=== PATIENT | male | born 1975 | race Caucasian/White ===

== ENCOUNTER 2017-03-02 09:46 | Outpatient (CLI) | payer OTHER | END 2017-03-02 09:47 | disposition home or self-care (01) | LOC: SC 09:46 | PROVIDERS: ATTEND Internal Medicine Pulmonary Disease | DX: G47.30 Sleep apnea, unspecified (principal); G47.8 Other sleep disorders; R06.83 Snoring; R53.83 Other fatigue | CPT/HCPCS: 99203; 99212 ==

== ENCOUNTER 2017-03-18 21:54 | Outpatient (CLI) | payer OTHER | END 2017-03-18 21:55 | disposition home or self-care (01) | LOC: SC 21:54 | PROVIDERS: ATTEND Internal Medicine Pulmonary Disease | DX: G47.33 Obstructive sleep apnea (adult) (pediatric) (principal); G47.31 Primary central sleep apnea; G47.61 Periodic limb movement disorder; Z68.30 Body mass index [BMI] 30.0-30.9, adult | CPT/HCPCS: 95810 ==

== ENCOUNTER 2017-04-08 11:11 | Outpatient (CLI) | payer OTHER | END 2017-04-08 11:12 | disposition home or self-care (01) | LOC: SC 11:11 | PROVIDERS: ATTEND Nurse Practitioner Family | DX: G47.33 Obstructive sleep apnea (adult) (pediatric) (principal); G47.61 Periodic limb movement disorder | CPT/HCPCS: 99212; 99214 ==

== ENCOUNTER 2017-04-27 19:20 | Outpatient (CLI) | payer OTHER | END 2017-04-27 19:21 | disposition home or self-care (01) | LOC: SC 19:20 | PROVIDERS: ATTEND Internal Medicine Pulmonary Disease | DX: G47.33 Obstructive sleep apnea (adult) (pediatric) (principal); G47.61 Periodic limb movement disorder; Z68.30 Body mass index [BMI] 30.0-30.9, adult | CPT/HCPCS: 95811 ==

== ENCOUNTER 2017-05-27 09:42 | Outpatient (CLI) | payer OTHER | END 2017-05-27 09:43 | disposition home or self-care (01) | LOC: SC 09:42 | PROVIDERS: ATTEND Nurse Practitioner Family | DX: G47.33 Obstructive sleep apnea (adult) (pediatric) (principal) | CPT/HCPCS: 99212; 99214 ==

== ENCOUNTER 2017-07-16 08:47 | Outpatient (CLI) | payer OTHER | END 2017-07-16 08:48 | disposition home or self-care (01) | LOC: SC 08:47 | PROVIDERS: ATTEND Nurse Practitioner Family | DX: G47.33 Obstructive sleep apnea (adult) (pediatric) (principal) | CPT/HCPCS: 99212; 99214 ==

== ENCOUNTER 2017-10-15 09:45 | Outpatient (CLI) | payer OTHER | END 2017-10-15 09:46 | disposition home or self-care (01) | LOC: SC 09:45 | PROVIDERS: ATTEND Nurse Practitioner Family | DX: G47.33 Obstructive sleep apnea (adult) (pediatric) (principal); I10 Essential (primary) hypertension | CPT/HCPCS: 99212; 99214 ==

== ENCOUNTER 2018-07-14 15:08 | Outpatient (CLI) | payer OTHER | END 2018-07-14 15:09 | disposition home or self-care (01) | LOC: SC 15:08 | PROVIDERS: ATTEND Nurse Practitioner Family | DX: G47.33 Obstructive sleep apnea (adult) (pediatric) (principal) | CPT/HCPCS: 99212; 99214 ==

== ENCOUNTER 2019-07-27 11:22 | Outpatient (CLI) | payer OTHER ==
[2019-07-27 12:23] VITALS: BP 152/98
--- NOTE | 2019-07-27 12:23 | SLEEP CARE CONSULTATION ---
Information from patient questionnaire entered by Nat Carty. I have reviewed and concur with the information entered by Nat Carty. This document represents the service I personally performed and the decisions made by me, Aminah Everett, RN, MSN, QA REVIEWER. History of Present Illness Previous diagnosis: Mild (having problems getting supplies / would like to transfer. ), Obstructive Sleep Apnea-Hypopnea Syndrome AHI: 8.4 Reason for CPAP/BiPAP follow up: annual Equipment type: CPAP Equipment obtained from: [facility] Mask style: Nasal (Dreamwear) Mask brand: Respironics Backup mask available: Yes Last cushion change: 3 weeks ago Prior sleep studies: Yes Year and Where: 2016 [facility] additional information: Received call 03/30/19 that he was having some symptoms of bloating when first awakened. I ordered autoCPAP pressure change to 4-6cmH20 with patient to follow up. Patient symptoms resolved but current compliance does not show pressure change. History reflects he was also eating alot of chili then. No current problems with pressure or aerophagia. CPAP Compliance Data - Data Reviewed with Patient Average duration of nightly device use: 8h 5m Compliance rate %: 100 Current pressure setting (cmH2O): 7 Humidity setting: off Heated hose settin Average residual AHI: 2.6 Average large leak: 2 min 43 sec Subjective Patient concerns: reports: air blowing in eyes (rare). denies: aerophagia, mask discomfort, mask leak noise, condensation in mask/hose, nasal congestion, dry mouth, nose, throat, epistaxis Observed to snore while using device: No Current pressure setting perceived as: comfortable On therapy, patient: reports: sleeping better, awakening more refreshed, being more awake and alert during the day, more rested overall. denies: drowsiness while driving Initial Frederick Sleepiness Scale score: 5 Current Frederick Sleepiness Scale score: 2 Allergies and Home Medications Known drug allergies: No Home medication list reviewed: Yes Allergy and home medication list: Medication Name (generic/name brand) Strength & Dosage Flonase 50mcg 2 sprays each nostril daily Pantoprazole 20mg every other day and as needed Review of Systems Review of systems same as previous: Yes Physical Exam Blood Pressure: 152/98 (monitors at home and PCP guidelines) Cuff size: long Heart Rate: 74 O2 Saturation: 97 Height: 6 ft 3 in Weight: 252 lb 12.8 oz Body Mass Index: 31.6 BMI Classification: Obesity Class 1 Impression and Plan 1. Obstructive Sleep Apnea-Hypopnea Syndrome, mild, with good treatment compliance and good apnea control. On CPAP therapy, the patient has better sleep quality and is more rested overall. He has had symptoms of aerophagia in past and plans on losing weight so I will change his CPAP pressure to autoCPAP 5- 7cmH20. He is to contact me if pressure change uncomfortable or if AHI above 5 as shown on sample CPAP. Symptoms to report for further pressure adjustment with weight loss discussed. For his supply concerns I will transfer to [place]. A DWO prescription will be made. I will have discharge registrar inform him of his DME options. Patient's apnea severity and rationale for treatment to reduce apnea, improve sleep quality and reduce cardiovascular and cerebrovascular events was reviewed. I also reviewed the benefit of consistent device use of CPAP for hypertension, gerd, anxiety. 2. Elevated blood pressure, 152/98 and 140/100 at end of visit. He denies lightheadedness, chest pain and shortness of breath. He monitors blood pressure at home and generally runs around 130/89. He has seen PCP and has guidelines to follow. I advised him of risks of untreated HTN and to seek urgent medical care if over 180 systolic and over 100 diastolic. I reviewed health risks of heart disease and stroke with untreated hypertension. He would prefer not to use medications to control his blood pressure. However, he is advised to follow up with PCP for further evaluation and bring his B/P recordings from home to see if needed at this time. A monitoring card given with today's readings. He also is working on losing weight which will reduce blood pressure and apnea risks. He states he just lost 10 pounds after gained while traveling for work. * Transfer to new [facility] [employer] [facility] * Change CPAP pressure to 5-7 cmH2O for projected weight loss. * Notify me if snoring with mask or feeling that the pressure is too much or too little * Continue to lose weight * Follow up with PCP for further evaluation of elevated blood pressure * Return for follow up in 1 year , or sooner if concerns arise I spent 100% of this 30 minute visit face to face with the patient with greater than 50% of this was spent time counseling the patient and coordination of care.
== END 2019-07-27 11:23 | disposition home or self-care (01) ==
LOC: SC 11:22
PROVIDERS: ATTEND Nurse Practitioner Family
DX: G47.33 Obstructive sleep apnea (adult) (pediatric) (principal); R03.0 Elevated blood-pressure reading, without diagnosis of hypertension; E66.9 Obesity, unspecified; Z68.31 Body mass index [BMI] 31.0-31.9, adult
CPT/HCPCS: 99212; 99214

== ENCOUNTER 2022-02-04 11:03 | Outpatient (CLI) | payer OTHER ==
[2022-02-04 10:49] VITALS: BP 137/91
--- NOTE | 2022-02-04 10:49 | SLEEP CARE CONSULTATION ---
Information from patient questionnaire entered by Joyce Rivera MA. I have reviewed and concur with the information entered by Joyce Rivera MA. This document represents the service I personally performed and the decisions made by , Reena Thomason ARNP. History of Present Illness Service Date and Time: 02/04/2022 1040 Previous diagnosis: Mild (having problems getting supplies / would like to transfer. ), Obstructive Sleep Apnea-Hypopnea Syndrome AHI: 8.4 Reason for follow up: annual (LAST SEEN 07/2019, ) Equipment type: CPAP Equipment obtained from: [employer] (getting supplies as needed) Mask style: Nasal (Dreamwear) Mask brand: Respironics Backup mask available: Yes (old mask) Last cushion change: today Prior sleep studies: Yes Year and Where: 2016 [facility] HPI additional information: SHANDRA GOMEZ was diagnosed to have mild, AHI 8.4, obstructive sleep apnea- hypopnea syndrome and returns via video telehealth visit today for CPAP therapy annual follow-up. Sleep Study - Results Prior sleep studies: Yes Year and Where: 2016 [facility] CPAP Compliance Data - Data Reviewed with Patient Average duration of nightly device use: 8 HOURS 54 MINUTES Compliance rate %: 97.2 Current pressure setting (cmH2O): 5-7 Humidity settin Heated hose settin Average residual AHI: 4.4 Average large leak: 2 MINUTES 59 SECONDS Subjective Missed days of use due to: reports: illness (sinus infection) Patient concerns: denies: aerophagia, mask discomfort, air blowing in eyes, mask leak noise, condensation in mask/hose, nasal congestion, dry mouth, nose, throat, epistaxis, other Observed to snore while using device: No Current pressure setting perceived as: comfortable On therapy, patient: reports: sleeping better, awakening more refreshed, being more awake and alert during the day, more rested overall. denies: drowsiness while driving Initial Cardinal Sleepiness Scale score: 5 Current Cardinal Sleepiness Scale score: 0 Allergies and Home Medications Home medication list reviewed: Yes (weaning off pantoprazole, taking every other day last 2 wks) Review of Systems Review of systems same as previous: Yes (no changes) Physical Exam Vital signs obtained and entered by: L. MIMI, OFFICE TECHNOLOGY INSTRUCTOR AAMA Blood Pressure: 137/91 Cuff size: wrist Height: 6 ft 3 in Weight: 250 lb Body Mass Index: 31.2 BMI Classification: Obese Impression and Plan 1. Obstructive Sleep Apnea-Hypopnea Syndrome, mild, with good treatment compliance and good apnea control. On CPAP therapy, the patient has better sleep quality and is more rested overall. He has a Dreamstation that he has verified is on the recall. He is eligible in 05/2022 for a update of his CPAP. Patient has already registered their device for the recall. Patient denies any black particles seen in machine or hoses, any unusual odors coming from device. Patient has not experienced any physical symptoms such as upper airway irritation, headache, skin or eye irritation, asthma, nausea/vomiting, difficulty breathing or chest pain. If patient is not able to sleep due to waking up choking, gasping for air or other respiratory distress that they may decide to continue using it until it is either replaced or repaired. Patient will continue to use his CPAP and monitor for changes. Patient voiced understanding and agreement with plan. Patient's apnea severity and rationale for treatment to reduce apnea, improve sleep quality and reduce cardiovascular and cerebrovascular events was reviewed. I also reviewed the benefit of consistent device use of CPAP for hypertension, gastric reflux and anxiety. Patient was encouraged to try to lose weight to improve his overall health. * Continue auto CPAP pressure at 5-7 cmH2O * Notify me if snoring with mask or feeling that the pressure is too much or too little * Attempt to lose weight * Call this office if any problems using CPAP * Return for follow up in 1 year, or sooner if concerns arise Counseling Topics: Spare mask, Weight loss health impact Visit Type: Telehealth Video ([phone] HOME) Video Type: Doximity Patient Location: Home Location of Provider: Office Patient agrees and consents to this telehealth visit type: Yes Patient agrees to have their insurance billed: Yes Time Spent with Patient (minutes): 20 Provider Statement: I spent 100% of the Telehealth Video Call with the patient with greater than 50% spent counseling the patient and coordination of care.
== END 2022-02-04 11:04 | disposition home or self-care (01) ==
LOC: SC 11:03
PROVIDERS: ATTEND Nurse Practitioner Family
DX: G47.33 Obstructive sleep apnea (adult) (pediatric) (principal); E66.9 Obesity, unspecified; Z68.31 Body mass index [BMI] 31.0-31.9, adult

== ENCOUNTER 2022-08-20 08:19 | Day surgery (SDC) | payer OTHER ==
[2022-08-20] MEDS ORDERED: LACTATED RINGERS 1,000 ML IV ONE ×2 (08:37→09:28)
[2022-08-20] MEDS ORDERED: PROPOFOL 500 MG/50 ML 500 MG/50 ML VIAL ONE (08:57)
--- NOTE | 2022-08-20 09:09 | ANESTHESIA ---
Pre-Anesthesia VS, & Labs - Diagnosis screening - Procedure colonoscopy Vital Signs: Temp Pulse Resp BP Pulse Ox O2 Flow Rate 36.6 C 87 17 99 08/20/22 08:32 08/20/22 08:32 08/20/22 08:32 08/20/22 08:32 Height: 6 ft 3 in Weight (kg): 119 kg Body Mass Index: 32.8 BMI Classification: Obese - NPO >8 hours Home Medications and Allergies Fluticasone [Flonase] 1 spray INH PRN PRN 08/19/22 Pantoprazole Sodium [Protonix] 3 tab PO DAILY 08/19/22 Allergies/Adverse Reactions: Allergies Allergy/AdvReac Type Severity Reaction Status Date / Time No Known Drug Allergies Allergy Verified 08/19/22 13:19 Anes History & Medical History - Anesthetic History Anesthesia Complications: reports: No previous complications - Medical History Cardiovascular: reports: Hypertension Pulmonary: reports: Sleep apnea, CPAP use Gastrointestinal: reports: GERD Urinary: reports: None Musculoskeletal: reports: None Endocrine/Autoimmune: reports: None Skin: reports: None History of Cancer?: No - Surgical History General: reports: Appendectomy Exam General: Alert, Oriented x3 Dental: WNL Mouth Opening: Greater than 4 Fingerbreadths Mallampati classification: II Thyromental Distance: greater than 6 cm Respiratory: Lungs clear Cardiovascular: Regular rate Plan Anesthesia Type: Total IV Consent for Procedure(s) Verified and Reviewed: Yes Code Status: Attempt Resuscitation ASA classification: 2-Mild systemic disease Is this case an emergency?: No
[2022-08-20 09:52] VITALS: BP 166/110
--- NOTE | 2022-08-20 10:31 | ANESTHESIA POST OP EVALUATION ---
Anesthesia Post Eval - Post Anesthesia Eval Vitals: Last Vital Signs Temp 36.8 C 08/20/22 09:28 Pulse 75 08/20/22 09:52 Resp 17 08/20/22 09:52 BP 166/110 H 08/20/22 09:52 Pulse Ox 95 08/20/22 09:52 O2 Flow Rate CV Function Including HR & BP: Stable Pain Control: Satisfactory Nausea & Vomiting: Negative Mental Status: Baseline Respiratory Status: Airway Patent Hydration Status: Satisfactory Anesthesia Complications: None
== END 2022-08-20 08:20 | disposition home or self-care (01) ==
LOC: SDS 08:19
PROVIDERS: ATTEND Surgery
PROC: 0DBK8ZX Excision of Ascending Colon, Via Natural or Artificial Opening Endoscopic, Diagnostic (ICD-10-PCS; principal; 2022-08-20 09:30)
DX: Z12.11 Encounter for screening for malignant neoplasm of colon (principal); D12.2 Benign neoplasm of ascending colon; K64.8 Other hemorrhoids; G47.33 Obstructive sleep apnea (adult) (pediatric); E66.9 Obesity, unspecified; Z68.32 Body mass index [BMI] 32.0-32.9, adult; Z87.891 Personal history of nicotine dependence
CPT/HCPCS: 45385; J7120

== ENCOUNTER 2023-02-13 10:16 | Outpatient (CLI) | payer OTHER ==
[2023-02-13 10:12] VITALS: BP 133/86
--- NOTE | 2023-02-13 10:12 | SLEEP CARE CONSULTATION ---
Information from patient questionnaire entered by Jf Johnson. I have reviewed and concur with the information entered by Jf Johnson. This document represents the service I personally performed and the decisions made by me, Reena Thomason ARNP. History of Present Illness Service Date and Time: 02/13/2023 0940 Previous diagnosis: Mild (having problems getting supplies / would like to transfer. ), Obstructive Sleep Apnea-Hypopnea Syndrome AHI: 8.4 Reason for follow up: annual (LAST SEEN 01/2022) Equipment type: CPAP (Dreamstation 2) Equipment obtained from: [employer] (getting supplies as needed) Mask style: Nasal Mask brand: Respironics (Dreamwear) Backup mask available: Yes (old mask) Last cushion change: 3 days Prior sleep studies: Yes Year and Where: 2016 [facility] HPI additional information: SHANDRA GOMEZ was diagnosed to have mild, AHI 8.4, obstructive sleep apnea- hypopnea syndrome and returns via video telehealth visit today for CPAP therapy annual follow-up. Sleep Study - Results Prior sleep studies: Yes Year and Where: 2016 [facility] CPAP Compliance Data - Data Reviewed with Patient Average duration of nightly device use: 8 HRS 34 MINS 49 SECS Compliance rate %: 98.3 (08/16/22-02/11/23; 178/180 days used) Current pressure setting (cmH2O): 5-7 (avg 7.0) Average residual AHI: 6.2 Central apnea: 0.2 Obstructive apnea: 2.0 Hypopnea: 5.0 Average large leak: 3 mins 4 secs Subjective Missed days of use due to: reports: travel Patient concerns: reports: mask leak noise (needed new cushion). denies: aerophagia, mask discomfort, air blowing in eyes, condensation in mask/hose, nasal congestion, dry mouth, nose, throat, epistaxis Observed to snore while using device: No Current pressure setting perceived as: comfortable On therapy, patient: reports: sleeping better, awakening more refreshed, being more awake and alert during the day, more rested overall. denies: drowsiness while driving Initial Buckingham Sleepiness Scale score: 5 Current [place] Sleepiness Scale score: 2 (02/13/23) Allergies and Home Medications Known drug allergies: No Drug allergies reviewed: Yes Home medication list reviewed: Yes (Losartan 100 mg) Allergy and home medication list: Allergies No Known Drug Allergies Allergy Review of Systems Review of systems same as previous: No (colonoscopy 08/2022, normal) Physical Exam Vital signs obtained and entered by: JF Oseguera MA Blood Pressure: 133/86 (per pt) Heart Rate: 78 (per pt) Height: 6 ft 3 in (per pt) Weight: 256 lb (per pt) Body Mass Index: 32.0 BMI Classification: Obese Impression and Plan 1. Obstructive Sleep Apnea-Hypopnea Syndrome, mild, with good treatment compliance and fair apnea control with mild elevation of residual AHI. On CPAP therapy, the patient has better sleep quality and is more rested overall. The patients pressure will be changed to autoCPAP 5-8 cmH20 for elevation of residual AHI. Patient advised to contact me if pressure change is uncomfortable so that it can be adjusted. Patient has significant improvement of their sleep apnea and is satisfied with current CPAP therapy. Patient denies problems with oral dryness, nasal congestion, epistaxis, skin irritation or aerophagia. Goals for apnea control discussed. Patient's apnea severity and rationale for treatment to reduce apnea, improve sleep quality and reduce cardiovascular and cerebrovascular events was reviewed. I also reviewed the benefit of consistent device use of CPAP for hypertension, gastric reflux and anxiety. 2. Obesity, unspecified. Currently patients BMI is 32. Obesity increases the risk of apnea, CPAP pressure requirements and overall health risks especially cardiovascular and diabetes. Thus patient is advised to lose weight. * Change auto CPAP pressure to 5-8 cmH2O * Update supplies * Notify me if snoring with mask or feeling that the pressure is too much or too little * Attempt to lose weight * Call this office if any problems using CPAP * Return for follow up in 1 year, or sooner if concerns arise Counseling Topics: Spare mask, Weight loss health impact Visit Type: Telehealth Video Video Type: Doximity Patient Location: car Location of Provider: Office Patient agrees and consents to this telehealth visit type: Yes Patient agrees to have their insurance billed: Yes Time Spent with Patient (minutes): 11 Provider Statement: I spent 100% of the Telehealth Video Call with the patient with greater than 50% spent counseling the patient and coordination of care.
== END 2023-02-13 10:17 | disposition home or self-care (01) ==
LOC: SC 10:16
PROVIDERS: ATTEND Nurse Practitioner Family
DX: G47.33 Obstructive sleep apnea (adult) (pediatric) (principal); E66.9 Obesity, unspecified; Z68.32 Body mass index [BMI] 32.0-32.9, adult

== ENCOUNTER 2024-02-03 13:53 | Outpatient (CLI) | payer OTHER ==
--- NOTE | 2024-02-03 13:53 | SLEEP CARE CONSULTATION ---
Information from patient questionnaire entered by Denae Johnson. I have reviewed and concur with the information entered by Deane Johnson. This document represents the service I personally performed and the decisions made by , Reena Thomason ARNP. History of Present Illness Service Date and Time: 02/03/2024 1340 Previous diagnosis: Mild, Obstructive Sleep Apnea-Hypopnea Syndrome AHI: 8.4 Reason for follow up: first compliance after device update, annual (LAST SEEN 01/2023) Equipment type: CPAP (Dreamstation 2) Equipment obtained from: [employer] (having problems, would like transfer) Mask style: Nasal Mask brand: Respironics (Dreamwear) Backup mask available: Yes Last cushion change: 1 week Prior sleep studies: Yes Year and Where: 2016 [facility] HPI additional information: SHANDRA GOMEZ was diagnosed to have mild, AHI 8.4, obstructive sleep apnea- hypopnea syndrome and returns via video appointment today for CPAP therapy annual follow-up. Sleep Study - Results Prior sleep studies: Yes Year and Where: 2016 [facility] CPAP Compliance Data - Data Reviewed with Patient Average duration of nightly device use: 8 HRS 30 MINS 10 SEC Compliance rate %: 98.9 (01/30/23-01/29/24; 365/365 days used) Current pressure setting (cmH2O): 5-8 (avg 8) Average residual AHI: 5.5 Central apnea: 0.2 Obstructive apnea: 0.8 Hypopnea: 4.5 Average large leak: 2 mins 43 secs Subjective Patient concerns: reports: nasal congestion (due to allergies). denies: aerophagia, mask discomfort, air blowing in eyes, mask leak noise, condensation in mask/hose, dry mouth, nose, throat, epistaxis Observed to snore while using device: No Current pressure setting perceived as: comfortable On therapy, patient: reports: sleeping better, awakening more refreshed, being more awake and alert during the day, more rested overall. denies: drowsiness while driving Initial Daggett Sleepiness Scale score: 5 Current Daggett Sleepiness Scale score: 2 Allergies and Home Medications Known drug allergies: No Drug allergies reviewed: Yes Home medication list reviewed: Yes (Amlodipine 5 mg daily) Allergy and home medication list: Allergies No Known Drug Allergies Allergy (Verified 04/09/24 11:40) Review of Systems Review of systems same as previous: Yes (no changes) Physical Exam Vital signs obtained and entered by: REENA NASH Blood Pressure: 128/82 (per pt) Height: 6 ft 3 in (per pt) Weight: 274 lb (per pt) Body Mass Index: 34.2 BMI Classification: Obese Impression and Plan 1. Obstructive Sleep Apnea-Hypopnea Syndrome, mild, with good treatment compliance and good apnea control with minimal elevation of residual AHI at 5.5. On CPAP therapy, the patient has better sleep quality and is more rested overall. His average AHI is minimally elevated but patient feels the pressure is comfortable and when it has been higher has had issues with aerophagia. He would like to leave the pressure where it is at at this time. I will not make any changes to his pressure today because he does have significant improvement of his sleep apnea and good improvement of his symptoms. 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 The paperwork will be sent to him per his request. Patient's apnea severity and rationale for treatment to reduce apnea, improve sleep quality and reduce cardiovascular and cerebrovascular events was reviewed. I also reviewed the benefit of consistent device use of CPAP for hypertension, gastric reflux, anxiety. 2. Obesity, unspecified. Currently patients BMI is 34.2. Obesity increases the risk of apnea, CPAP pressure requirements and overall health risks especially cardiovascular and diabetes. Thus patient is advised to lose weight. * Continue auto CPAP pressure at 5-8 cmH2O * Update supply prescription * Notify me if snoring with mask or feeling that the pressure is too much or too little * Attempt to lose weight * Call this office if any problems using CPAP * Return for follow up in 12 months, or sooner if concerns arise Counseling Topics: Spare mask, Weight loss health impact Prescriptions: Device supplies Follow up with Sleep Care in: 1 year Visit Type: Telehealth Video Video Type: Juan A Patient Location: Home Location of Provider: Office Patient agrees and consents to this telehealth visit type: Yes Time Spent with Patient (minutes): 20 Provider Statement: I spent 100% of the Telehealth Video Call with the patient with greater than 50% spent counseling the patient and coordination of care.
[2024-02-03 14:32] VITALS: BP 128/82
== END 2024-02-03 13:54 | disposition home or self-care (01) ==
LOC: SC 13:53
PROVIDERS: ATTEND Nurse Practitioner Family
DX: G47.33 Obstructive sleep apnea (adult) (pediatric) (principal); E66.9 Obesity, unspecified; Z68.34 Body mass index [BMI] 34.0-34.9, adult